=== PATIENT | female | born 1975 | race Two or more races ===

== ENCOUNTER 2022-12-18 21:21 | Emergency (ER) | payer MEDICAID ==
[~2022-12-18] VITALS: Ht 165.1 cm; Wt 81.6 kg
--- NOTE | 2022-12-18 22:51 | NUR ---
BIBDAUGHTER FROM HOME FOR LEAKING URINARY CATHETER BAG, REQUESTING NEW CATHETER BAG.
--- NOTE | 2022-12-19 | NUR ---
ORIGINAL FORD CATHETER DC'ED AND NEW 16FR FORD CATHETER INSERTED. URINE SPECIMEN COLLECTED AND SENT TO LAB. URINE CLOUDY WITH SEDIMENT.
[2022-12-19 00:41] LABS: BILIRUBIN,URINE NEGATIVE (NEGATIVE); COLOR,URINE YELLOW (YELLOW); LEUKOCYTE ESTERASE ,URINE 2+ (NEGATIVE); NITRITE, URINE NEGATIVE (NEGATIVE); PROTEIN,URINE 1+ mg/dl (NEGATIVE); UGLUCOSE NEGATIVE (NEGATIVE); UROBILINOGEN,URINE 0.2 EU/dL (0.2)
[2022-12-19 00:48] LABS: BACTERIA,URINE Rare /HPF (None Seen); SQUAMOUS EPITHELIAL CELL,UR Few /HPF (None Seen)
[2022-12-19] MEDS ORDERED: NITR100C PO (01:02)
--- NOTE | 2022-12-19 01:18 | NUR ---
Patient discharged to home in stable condition with wheelchair. Written and verbal after care instructions given. Patient verbalizes understanding of instruction.
[2022-12-19 01:19] VITALS: BP 118/76
== END 2022-12-19 01:29 | disposition home or self-care (01) ==
LOC: ER 21:24
DX: T83.038A Leakage of other urinary catheter, initial encounter (principal)
CPT/HCPCS: 81001; 87086-TC